=== PATIENT | female | born 1950 | race Caucasian/White ===

== ENCOUNTER 2017-01-27 10:05 | Day surgery (SDC) | payer OTHER, BC ==
[2017-01-27 11:29] VITALS: PULSE 79
--- NOTE | 2017-01-27 12:02 | PDGENHP ---
History and Physical - Chief Complaint H/o polyps - History of Present Illness Pt with h/o multiple colon polyps History Information - Allergies/Home Medication List Allergies/Adverse Reactions: adhesive tape [Adhesive Tape] Allergy (Severe, Verified 01/12/10 09:46) SKIN BLISTERS, REDENED Cephalosporins Allergy (Severe, Verified 01/12/10 09:45) BODY HIVES amoxicillin Allergy (Verified 01/27/17 10:35) fluconazole [From Diflucan] Allergy (Verified 01/27/17 10:36) levofloxacin Allergy (Verified 01/27/17 10:35) Home Medications: Fexofenadine HCl [Ro Allergy] 60 mg PO HS 05/04/10 [Last Taken 01/26/17] Insulin Aspart [novoLOG] 40 - 65 unit SC QID PRN 05/04/10 [Last Taken 01/26/17 21:00 45 UNITS] Insulin Glargine [Lantus 100 UNITS/ML (*)] 90 units SC HS 05/04/10 [Last Taken 01/26/17] Nebivolol HCl [Bystolic 5 mg (*)] 10 mg PO DAILY 05/04/10 [Last Taken 01/27/17] amLODIPine BESYLATE [Norvasc 10 mg (*)] 10 mg PO DAILY 05/04/10 [Last Taken 10/08] Aspirin [Aspirin 81mg (*)] 81 mg PO HS 01/27/17 [Last Taken 01/23/17] Atorvastatin Calcium [Lipitor 20 mg (*)] 20 mg PO HS 01/27/17 [Last Taken ] Cholecalciferol Vit D3 [Vitamin D3 2000 units tab (OTC)] 2,000 units PO HS 01/27 [Last Taken 01/23/17] DULoxetine [Cymbalta 60 MG (*)] 60 mg PO DAILY 01/27/17 [Last Taken 01/27/17] Hydrocodone/Acetaminophen [[place] 5/325 (*)] 1 each PO DAILY 01/27/17 [Last Taken 01/26/17] LORazepam [Ativan (*)] 1 mg PO DAILY PRN 01/27/17 [Last Taken Unknown] I have personally reviewed and updated: family history - Past Medical History diabetes type 2 Review of Systems Review of Systems: Physical Exam Physical Exam: Temp Pulse Resp BP Pulse Ox 36.9 C 79 18 161/76 H 97 01/27/17 10:39 01/27/17 10:39 01/27/17 10:39 01/27/17 10:39 01/27/17 10:39 Constitutional: no apparent distress Cardiovascular: no murmur, rub, or gallop Respiratory: no respiratory distress, clear to auscultation Gastrointestinal: soft, non-tender abdomen Assessment & Plan Assessment: Pain for colonoscopy with MAC due to medication use and BMI
[2017-01-27] MEDS ORDERED: fentaNYL 100 MCG/2 ML INJ ONE (12:15)
[2017-01-27] MEDS ORDERED: PROPOFOL/EMULSION 500 MG/50 ML BOTTLE IV ONE (12:16)
[2017-01-27] MEDS ORDERED: LIDOCAINE 2% 100 MG/5 ML SYR ONE (12:16)
[2017-01-27] MEDS ORDERED: PROPOFOL 200 MG/20 ML VIAL ONE (12:37)
--- NOTE | 2017-01-27 12:46 | GIREPORT ---
Formerly [facility] Surgical Services - Endoscopy Department Patient Name: Ignacia Jade Procedure Date: 01/27/2017 12:08 PM Patient Type: Outpatient Attending MD/ ER Physician: Anahi Johnson MD Procedure: Colonoscopy Indications: High risk colon cancer surveillance: Personal history of multiple colon ic polyps Providers: Anahi Johnson MD Medicines: Monitored Anesthesia Care Complications: No immediate complications. Description of Procedure: After obtaining informed consent, the scope was passed under direct vision. Throughout the proce dure, the patient's blood pressure, pulse, and oxygen saturations were monitored continuously. The Colonoscope was introduced through the anus and advanced to the cecum, identified by appendiceal orifice and ileocecal valve. The colonoscopy was performed without difficulty. The patient fela ated the procedure well. The quality of the bowel preparation was good. The ileocecal valve, appendic eal orifice, and rectum were photographed. Findings: The perianal and digital rectal examinations were normal. Scattered diverticula were found in the sigmoid colon, descending colon and ascending colon. Two sessile polyps were found in the transverse colon. The polyps were 4 to 5 mm in size. These polyps were removed with a cold biopsy forceps. Resection and retrieval were complete. Estimated blood loss was minimal. Estimated Blood Loss: Estimated blood loss was minimal. Post Op Diagnosis: - Diverticulosis in the sigmoid colon, in the descending colon and in t he ascending colon. - Two 4 to 5 mm polyps in the transverse colon, removed with a cold bio psy forceps. Resected and retrieved. Recommendation: - Await pathology results. - Patient has a contact number available for emergencies. The signs and symptoms of potential delayed complications were discussed with the pat ient. Return to normal activities tomorrow. Written discharge instructions we re provided to the patient. - High fiber diet. - Continue present medications. - Repeat colonoscopy in 3 years for surveillance. - Discharge patient to home. Attending Participation: I personally performed the entire procedure. Anahi Johnson MD Anahi Johnson MD 01/27/2017 12:45:38 PM Number of Addenda: 0 Note Initiated On: 01/27/2017 12:08 PM Total Procedure Duration Time 0 hours 15 minutes 46 seconds [email or web address]
[2017-01-27] MEDS ORDERED: ONDANSETRON 4 MG/2 ML VIAL IVP PRN (12:47)
[2017-01-27] MEDS ORDERED: ALBUTEROL 3 ML DEYVIAL IH PRN (12:47)
[2017-01-27] MEDS ORDERED: NALOXONE HCL 0.4 MG/ML INJ IVP PRN (12:47)
--- NOTE | 2017-01-27 12:47 | POSTANESTH ---
Post Anesthetic Evaluation Cardiovascular Status: Similar to Pre-Op Cond, Other, See Comment Respiratory Status: Similar to Pre-op Cond. Level of Consciousness/Mental Status: Mildly Sleepy, Arousable Pain Control: Adequate, Prn Tx Ordered Nausea/Vomiting Control: Adequate, Prn Tx Ordered Complications Possibly Related to Anesthesia: None Noted
--- NOTE | 2017-01-27 12:47 | PDANEPAE ---
ANE Past Medical History - Cardiovascular History Hx Hypertension: Yes Hx Arrhythmias: No Hx Chest Pain: No Hx Coronary Artery / Peripheral Vascular Disease: No Hx CHF / Valvular Disease: No Hx Palpitations: No - Pulmonary History Hx COPD: No Hx Asthma/Reactive Airway Disease: No Hx Recent Upper Respiratory Infection: No Hx Oxygen in Use at Home: No Hx Sleep Apnea: No Sleep Apnea Screening Result - Last Documented: Positive - Neurologic History Hx Cerebrovascular Accident: No Hx Seizures: No Hx Dementia: No - Endocrine History Hx Diabetes: Yes - Renal History Hx Renal Disorders: Yes - Liver History Hx Hepatic Disorders: No - Neurological & Psychiatric Hx Hx Neurological and Psychiatric Disorders: Yes Neurological / Psychiatric History Comment: neuropathy, anxiety - Cancer History Hx Cancer: Yes Cancer History Comment: basal cell on neck - Congenital Disorder History Hx Congenital Disorders: No - GI History Hx Gastrointestinal Disorders: No - Other Health History Other Health History: none - Chronic Pain History Chronic Pain: Yes (arthitis left hip right knee and hands) - Surgical History Prior Surgeries: restructer urethra ANE Review of Systems Review of Systems: - Exercise capacity METS (RN): 4 METS ANE Patient History - Allergies Allergies/Adverse Reactions: adhesive tape [Adhesive Tape] Allergy (Severe, Verified 01/12/10 09:46) SKIN BLISTERS, REDENED Cephalosporins Allergy (Severe, Verified 01/12/10 09:45) BODY HIVES amoxicillin Allergy (Verified 01/27/17 10:35) fluconazole [From Diflucan] Allergy (Verified 01/27/17 10:36) levofloxacin Allergy (Verified 01/27/17 10:35) - Home Medications Home Medications: Fexofenadine HCl [Ro Allergy] 60 mg PO HS 05/04/10 [Last Taken 01/26/17] Insulin Aspart [novoLOG] 40 - 65 unit SC QID PRN 05/04/10 [Last Taken 01/26/17 21:00 45 UNITS] Insulin Glargine [Lantus 100 UNITS/ML (*)] 90 units SC HS 05/04/10 [Last Taken 01/26/17] Nebivolol HCl [Bystolic 5 mg (*)] 10 mg PO DAILY 05/04/10 [Last Taken 01/27/17] amLODIPine BESYLATE [Norvasc 10 mg (*)] 10 mg PO DAILY 05/04/10 [Last Taken 10/08] Aspirin [Aspirin 81mg (*)] 81 mg PO HS 01/27/17 [Last Taken 01/23/17] Atorvastatin Calcium [Lipitor 20 mg (*)] 20 mg PO HS 01/27/17 [Last Taken ] Cholecalciferol Vit D3 [Vitamin D3 2000 units tab (OTC)] 2,000 units PO HS 01/27 [Last Taken 01/23/17] DULoxetine [Cymbalta 60 MG (*)] 60 mg PO DAILY 01/27/17 [Last Taken 01/27/17] Hydrocodone/Acetaminophen [[place] 5/325 (*)] 1 each PO DAILY 01/27/17 [Last Taken 01/26/17] LORazepam [Ativan (*)] 1 mg PO DAILY PRN 01/27/17 [Last Taken Unknown] - NPO status NPO Since - Liquids (Date): 01/27/17 NPO Since - Liquids (Time): 07:00 NPO Since - Solids (Date): 01/26/17 NPO Since - Solids (Time): 17:00 - Smoking Hx Smoking Status: Never smoked - Family Anes Hx Family Hx Anesthesia Complications: none ANE Labs/Vital Signs - Vital Signs Blood Pressure: 161/76 Heart Rate: 79 Respiratory Rate: 18 O2 Sat (%): 97 Height: 167.64 cm Weight: 147.418 kg ANE Physical Exam - Airway Neck exam: FROM Mallampati Score: Class 3 Mouth exam: normal dental/mouth exam - Pulmonary Pulmonary: no respiratory distress - Cardiovascular Cardiovascular: regular rate and rhythym - ASA Status ASA Status: III ANE Anesthesia Plan Total IV Anesthesia: Yes
[2017-01-27 13:24] VITALS: TEMP 97.2
[2017-01-27 14:34] VITALS: BP 145/66; RESP 18; O2SAT 97
== END 2017-01-27 14:10 | disposition home or self-care (01) ==
LOC: FSGY 10:05
PROVIDERS: ATTEND Internal Medicine Gastroenterology
PROC: 0DBL8ZX Excision of Transverse Colon, Via Natural or Artificial Opening Endoscopic, Diagnostic (ICD-10-PCS; principal; 2017-01-27 12:00)
DX: D12.3 Benign neoplasm of transverse colon (principal); K57.30 Diverticulosis of large intestine without perforation or abscess without bleeding; E11.9 Type 2 diabetes mellitus without complications; E66.01 Morbid (severe) obesity due to excess calories; Z68.43 Body mass index [BMI] 50.0-59.9, adult
CPT/HCPCS: J2001; J2704; J3010